=== PATIENT | female | born 1970 ===

== ENCOUNTER 2021-07-18 06:05 | Day surgery (SDC) | payer OTHER ==
[~2021-07-18 06:05] MED LIST: MAGNESIUM400 M1 PO
[2021-07-18] MEDS ORDERED: PERCOCET 5-3251 EACH PO (12:14)
== END 2021-07-18 16:00 | disposition home or self-care (01) ==
LOC: CIR.AMB 06:05
PROVIDERS: ATTEND Surgery
DX: C73 Malignant neoplasm of thyroid gland (principal); Z20.822 Contact with and (suspected) exposure to COVID-19